=== PATIENT | female | born 1980 | race Two or more races ===

== ENCOUNTER 2024-10-08 08:45 | Inpatient (IN) | payer OTHER ==
[~2024-10-08] VITALS: Ht 170.2 cm; Wt 88.5 kg
[2024-10-08] MEDS ORDERED: COZAAR100 MG PO (09:17)
[2024-10-08] MEDS ORDERED: NORVASC2.5 M1 (09:17)
[2024-10-08 09:21] VITALS: BP 151/89
[2024-10-08 09:40] LABS: BASO % 0.9 % (0.1-1.2); EOS # 0.17 (0.04-0.54); EOS % 2.5 % (0.7-7.0); LYMPH # 1.89 (1.18-3.74); LYMPH % 27.3 % (19.3-53.1); MEAN PLATELET VOLUME 10.90 fl (9.4-12.4); MONO # 0.37 (0.24-0.82); MONO % 5.3 % (4.7-12.5); NEUT # 4.41 (1.56-6.13); NEUT % 63.7 % (34.0-71.1); RED CELL DISTRIBUTION WIDTH 13.1 % (11.6-14.4)
[2024-10-08 09:43] LABS: URINE APPEARANCE Clear; URINE BILIRRUBIN Negative (NEGATIVE); URINE BLOOD Large; URINE COLOR Yellow; URINE GLUCOSE Negative (NEGATIVE); URINE KETONE Negative (NEGATIVE); URINE LEUKOCYTE Negative; URINE NITRATE Negative; URINE PROTEIN 30 (NEGATIVE); URINE UROBILINOGEN 0.2 E.U./dl
[2024-10-08 09:44] LABS: URINE BACTERIA 903.5 uL (0.0-1933); URINE EPITHELIAL CELLS 29.3 uL (0.0-38.8); URINE RBC 262.0 uL (0.0-20.8); URINE WBC 16.4 uL (0.0-23.2)
[2024-10-08 09:51] LABS: URINE CAST 0.00 uL (0.0-1.40)
[2024-10-08 10:01] LABS: INR 0.96
[2024-10-08 10:05] LABS: ALT/SGPT 21.0 U/L (12-78); AST/SGOT 10.0 U/L (15-37); BILIRUBIN TOTAL 0.39 mg/dL (0.3-1.2); BUN CREA RATIO 25.0 (7.0-25.0); CREATININE SERUM 0.6 mg/dL (0.55-1.02); GFR 109.11; GLOBULINA 4.3 G/DL (2.4-3.5); GLUCOSE FASTING 92.0 mg/dL (65-100); OSMOLALITY SERUM 285.0 MOSM/KG (275-295)
[2024-10-08 11:38] LABS: RH NEGATIVE
[2024-10-16] MEDS ORDERED: POVIDONE-IODINE 118 ML BOTT TOP ONE (17:00)
[2024-10-16] MEDS ORDERED: CEFOXITIN SODIUM 2,000 MG VIAL IV ONE (17:00)
[2024-10-16] MEDS ORDERED: SUGAMMADEX SODIUM 200 MG/2 ML VIAL IV ONE (17:30)
[2024-10-16] MEDS ORDERED: MORPHINE SULFATE 4 MG/ML VIAL IV ONE ×2 (20:00→20:30)
[2024-10-16] MEDS ORDERED: KETOROLAC TROMETHAMINE 60 MG VIAL IM STA (20:49)
[2024-10-16] MEDS ORDERED: RINGERS SOLUTION,LACTATED 1,000 ML IV SCH (21:00)
[2024-10-16] MEDS ORDERED: MORPHINE SULFATE 4 MG/ML VIAL IV PRN (21:00)
[2024-10-16 21:20] LABS: BASO % 0.2 % (0.1-1.2); EOS # 0.02 (0.04-0.54); EOS % 0.1 % (0.7-7.0); LYMPH # 1.58 (1.18-3.74); LYMPH % 9.1 % (19.3-53.1); MEAN PLATELET VOLUME 10.70 fl (9.4-12.4); MONO # 0.83 (0.24-0.82); MONO % 4.8 % (4.7-12.5); NEUT # 14.77 (1.56-6.13); NEUT % 85.5 % (34.0-71.1); RED CELL DISTRIBUTION WIDTH 13.1 % (11.6-14.4)
[2024-10-16 21:23] VITALS: BP 145/84; O2SAT 99
[2024-10-17] VITALS: BP 143/85
[2024-10-17] MEDS ORDERED: CEFOXITIN SODIUM 2,000 MG VIAL IV SCH (01:00)
[2024-10-17 08:25] VITALS: BP 139/85
[2024-10-17] MEDS ORDERED: ACETAMINOPHEN WITH CODEINE 1 UDTAB TABLET PO PRN (09:00)
[2024-10-17 16:00] VITALS: BP 134/75
[2024-10-17 20:00] VITALS: BP 148/83
[2024-10-18 01:11] VITALS: BP 134/80; O2SAT 97
[2024-10-18 08:30] VITALS: BP 121/70
[2024-10-18 13:42] VITALS: BP 121/64
[2024-10-18 16:00] VITALS: BP 141/80
[2024-10-19 00:52] VITALS: BP 143/81
[2024-10-19 08:21] VITALS: BP 134/86
== END 2024-10-19 11:59 | disposition home or self-care (01) | DRG 743 ==
LOC: SURH 10-16 08:45 → OB/GYN 10-16 19:40
PROVIDERS: ADMIT Obstetrics & Gynecology; ATTEND Obstetrics & Gynecology
PROC: 0UT70ZZ Resection of Bilateral Fallopian Tubes, Open Approach (ICD-10-PCS; 2024-10-16)
PROC: 0UT90ZZ Resection of Uterus, Open Approach (ICD-10-PCS; principal; 2024-10-16 10:30)
DX: D25.0 Submucous leiomyoma of uterus (principal); Z90.710 Acquired absence of both cervix and uterus; N93.9 Abnormal uterine and vaginal bleeding, unspecified